=== PATIENT | male | born 1995 | race Caucasian/White ===

== ENCOUNTER 2017-01-07 10:51 | Emergency (ER) | payer OTHER ==
[~2017-01-07] VITALS: Ht 170.2 cm; Wt 90.9 kg
[2017-01-07] MEDS ORDERED: IBUPROFEN 600 MG TABLET PO ONE (11:15)
[2017-01-07 13:08] VITALS: BP 121/72
== END 2017-01-07 13:23 | disposition home or self-care (01) ==
LOC: EMS 10:53
DX: S83.92XA Sprain of unspecified site of left knee, initial encounter (principal); X58.XXXA Exposure to other specified factors, initial encounter; Y93.66 Activity, soccer; Y92.89 Other specified places as the place of occurrence of the external cause; Y99.8 Other external cause status
CPT/HCPCS: 99284